=== PATIENT | female | born 2000 | race African-American/Black ===

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

== ENCOUNTER 2024-06-10 21:17 | Emergency (ER) | payer MEDICAID ==
[~2024-06-10] VITALS: Ht 121.9 cm; Wt 37.0 kg
[~2024-06-10 21:17] MED LIST: NAPR-1074 MT
[2024-06-10 21:21] VITALS: BP 144/97; PULSE 86; TEMP 98.4; O2SAT 98
[2024-06-10] MEDS ORDERED: ACETAMINOPHEN 325MG TABLET PO ONE (21:30)
[2024-06-10] MEDS ORDERED: TOPUD MT (22:34)
[2024-06-11 01:00] VITALS: RESP 19
[2024-06-11] MEDS: ACETAMINOPHEN 325MG TABLET PO NR (01:00)
== END 2024-06-11 01:27 | disposition home or self-care (01) ==
LOC: ER 21:17
DX: M25.512 Pain in left shoulder (principal); M79.642 Pain in left hand
CPT/HCPCS: 73030; 73130; 99284